=== PATIENT | female | born 1945 | race Caucasian/White ===

== ENCOUNTER 2021-12-13 15:47 | Emergency (ER) | payer MEDICARE, BC ==
[2021-12-13 16:29] VITALS: BP 150/66; PULSE 69
[2021-12-13] MEDS ORDERED: Bacitracin Oint 1 GM U/D Packet TOP ONE (16:31)
[2021-12-13] MEDS ORDERED: Lidocaine 1% 5 ML VIAL INJECT ONE (16:31)
== END 2021-12-13 17:20 | disposition home or self-care (01) ==
LOC: JP.ED 15:47
DX: S61.215A Laceration without foreign body of left ring finger without damage to nail, initial encounter (principal); S61.217A Laceration without foreign body of left little finger without damage to nail, initial encounter; I48.91 Unspecified atrial fibrillation; I10 Essential (primary) hypertension; Z88.5 Allergy status to narcotic agent; Z88.0 Allergy status to penicillin; Z88.2 Allergy status to sulfonamides; Z79.899 Other long term (current) drug therapy; W23.1XXA Caught, crushed, jammed, or pinched between stationary objects, initial encounter
CPT/HCPCS: 12004; 99281; 99283-25